=== PATIENT | female | born 1975 | race Caucasian/White ===

== ENCOUNTER 2023-09-02 14:59 | Outpatient (AMB) | payer BC, SELFPAY ==
--- NOTE | 2023-09-02 15:05 | MHC.OFFVIS ---
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 The patient is a 48 year woman, Active smoker, presented pulmonary nodules. did her smoking history she decided to participating in lung cancer screening program at [facility]. She did undergo a CT scan of the chest which I personally reviewed with her. The patient has numerous pulmonary nodules there appeared to be for the most part noncalcified solid nodules subcentimeter in size largest 1 measuring about 4 mm in size. In addition to that she does have ground-glass nodular densities. Best appreciated in the right lower lobe. the patient did also have evidence of chronic bronchitis and some mosaic pattern suggesting bronchiolitis from the smoking. Minimal emphysema appreciated. The patient understands that a lot of the findings on her CT scan have to do with smoking. She has been able to quit in the past. She did respond well to the nicotine patch. At this point she will reflect on in figure hot or she can best quit. on further questioning the patient does have a cough. [id number] severity. Productive typically in the morning. Typical of a smoker's cough. Denies any hemoptysis. She denies any chest pain. She is not using any inhalers at this point she does feel like she needs 1. based on the CT scan findings the patient will follow-up with a CT scan in June of 2024 through the lung cancer screening program. After she undergoes a CT scan she will return so we can review the CT scans together in compare. I am hopeful that she can quit smoking prior to her next CT scan in order for us to see improvements specially since some of the nodules appear to be inflammatory in nature. [facility] Medical History (Updated 09/04/23 @ 21:49 by Luis Harris MD) Tobacco dependence Pulmonary nodules Social History (Updated 09/02/23 @ 15:09 by MARIE Rodriguez) Patient Tobacco Use Status: Current everyday Tobacco user Tobacco use type: Cigarette Review of Systems Const Denies fever(s) Eyes Reports no additional complaints ENT Reports no additional complaints Card Denies chest pain Resp Reports chest congestion, Reports cough and Denies wheezing GI Reports no additional complaints Musc Reports no additional complaints Skin/Breast Denies rash Dave/Lymph Denies lymphadenopathy Aller/Immun Denies wheezing Physical Exam Vital Signs: Last Vital Signs Pulse 70 09/02/23 15:06 BP 110/60 09/02/23 15:06 Pulse Ox 98 09/02/23 15:06 Oxygen Delivery Method Room Air 09/02/23 15:06 BMI result Body Mass Index 24.1 Const General: comfortable HEENT Head: Yes normocephalic Neck Neck: Yes supple Chest Chest palpation & inspection: normal inspection of the chest Resp Effort & Inspection: normal respiratory effort and prolonged expiratory phase Auscultation: diminished lung sounds Cardio Heart sounds: S1 normal heart sound present and S2 normal heart sound present GI Palpation (GI): Soft to palpation Skin General skin exam: no rashes or lesions noted Extrem General: Yes no clubbing, cyanosis or edema Assessment & Plan Assessment & Plan (1) Pulmonary nodules: Code(s): R91.8 - Other nonspecific abnormal finding of lung field Category: Medical (2) Tobacco dependence: Code(s): F17.200 - Nicotine dependence, unspecified, uncomplicated Category: Medical Plan LDCT 06/2024 tobacco cessation consider JACINDA as needed F/U 1 year Coding Level of Care Code New Pt Level 4 (23150) Diagnoses Pulmonary nodules R91.8 Tobacco dependence F17.200 Time Spent (min) 35
[2023-09-02 15:06] VITALS: BP 110/60; PULSE 70; O2SAT 98; BMI 24.1
== END 2023-09-02 15:36 | disposition home or self-care (01) ==
PROVIDERS: PCP Internal Medicine; Referring Provider Internal Medicine; Visit Provider Hospitalist
DX: R91.8 Other nonspecific abnormal finding of lung field (principal); F17.200 Nicotine dependence, unspecified, uncomplicated
CPT/HCPCS: 99204

== ENCOUNTER → 2023-09-02 14:59 | Outpatient (BNVA) | payer BC, SELFPAY | PROVIDERS: PCP Internal Medicine; Referring Provider Internal Medicine; Visit Provider Hospitalist ==

== ENCOUNTER 2024-08-07 09:35 | Outpatient (AMB) | payer BC, SELFPAY ==
[2024-08-07 09:37] VITALS: BP 118/76; PULSE 58; O2SAT 100; BMI 25.6
--- NOTE | 2024-08-07 09:37 | A.OFFVIS_ITS ---
Vital Signs 08/07/24 09:37 Height 5 ft 2 in Weight 139 lb 15.896 oz BMI 25.6 BP 118/76 Blood Pressure Location Rt brachial Position Sitting Pulse 58 Pulse Source Pulse Oximeter Pulse Oximetry (%) 100 Oxygen Delivery Method Room Air Intake Visit Reasons: Pulmonary Nodules/PFT Follow Up Allergies No Known Allergies Allergy (Verified 08/07/24 09:40) HPI Comments Details: The patient is a 49 year woman, Active smoker, presented pulmonary nodules. did her smoking history she decided to participating in lung cancer screening program at [facility]. She did undergo a CT scan of the chest which I personally reviewed with her. The patient has numerous pulmonary nodules there appeared to be for the most part noncalcified solid nodules subcentimeter in size largest 1 measuring about 4 mm in size. In addition to that she does have ground-glass nodular densities. Best appreciated in the right lower lobe. the patient did also have evidence of chronic bronchitis and some mosaic pattern suggesting bronchiolitis from the smoking. Minimal emphysema appreciated. The patient understands that a lot of the findings on her CT scan have to do with smoking. She has been able to quit in the past. She did respond well to the nicotine patch. At this point she will reflect on in figure hot or she can best quit. on further questioning the patient does have a cough. [id number]-ik-[id number] severity. Productive typically in the morning. Typical of a smoker's cough. Denies any hemoptysis. She denies any chest pain. She is not using any inhalers at this point she does feel like she needs 1. based on the CT scan findings the patient will follow-up with a CT scan in June of 2024 through the lung cancer screening program. After she undergoes a CT scan she will return so we can review the CT scans together in compare. I am hopeful that she can quit smoking prior to her next CT scan in order for us to see improvements specially since some of the nodules appear to be inflammatory in nature. 08/07/2024 the patient is here for a pulmonary follow-up visit. Overall the patient has been doing okay. Has been working very hard and has been very visit. Unfortunately she has not been able to quit smoking because of her stress level has been very high and she has not been able to do so. However now things are getting a little better and she is hoping to be able to quit. The patient did have another CAT scan to the lung cancer screening program that we did review. Her pulmonary nodules appear to be stable. She does have a little bit of emphysema and also has some cholesterol buildup. Explained to her that this is all symptoms and findings due to her smoking. The UR was going now with the 0 RI RI 0 the in a tight unfortunately [facility] Medical History (Updated 09/04/23 @ 21:49 by Luis Harris MD) Tobacco dependence Pulmonary nodules Social History (Updated 08/07/24 @ 09:39 by Priya Carbajal CMA) Patient Tobacco Use Status: Current everyday Tobacco user Tobacco use type: Cigarette Cigarette Packs Per Day: 0.5 Cigarettes Per Day: 10 Review of Systems Const Denies fever(s) Eyes Reports no additional complaints ENT Reports no additional complaints Card Denies chest pain Resp Reports chest congestion, Reports cough and Denies wheezing GI Reports no additional complaints Musc Reports no additional complaints Skin/Breast Denies rash Dave/Lymph Denies lymphadenopathy Aller/Immun Denies wheezing Physical Exam Vital Signs: Last Vital Signs Pulse 58 08/07/24 09:37 BP 118/76 08/07/24 09:37 Pulse Ox 100 08/07/24 09:37 Oxygen Delivery Method Room Air 08/07/24 09:37 BMI result Body Mass Index 25.6 Const General: comfortable HEENT Head: Yes normocephalic Neck Neck: Yes supple Chest Chest palpation & inspection: normal inspection of the chest Resp Effort & Inspection: normal respiratory effort and prolonged expiratory phase Auscultation: diminished lung sounds Cardio Heart sounds: S1 normal heart sound present and S2 normal heart sound present GI Palpation (GI): Soft to palpation Skin General skin exam: no rashes or lesions noted Extrem General: Yes no clubbing, cyanosis or edema Assessment & Plan Assessment & Plan (1) Pulmonary nodules: Code(s): R91.8 - Other nonspecific abnormal finding of lung field Category: Medical (2) Tobacco dependence: Code(s): F17.200 - Nicotine dependence, unspecified, uncomplicated Category: Medical Plan LDCT 06/2025 Rads 2 tobacco cessation: will try nicotine patch and break through gum consider JACINDA as needed F/U 1 year Medications: New nicotine 1 patch transdermal DAILY 28 ea 6RF 28 days nicotine (polacrilex) (Nicorette) 2 mg buccal Q6H PRN 50 ea 6RF nicotine cravings Coding Level of Care Code Est Pt Level 4 (99589) Diagnoses Pulmonary nodules R91.8 Tobacco dependence F17.200 Time Spent (min) 17
--- OUTSIDE RECORDS SUMMARY | 2024-08-07 10:46 | XMS_ITS | Clinical Summary ---
Author Organization [facility] [address] [facility] Address [address] [place] [address] Phone Care Team Providers Care Insole Bottom Filler Name Role Phone Mikal Griffith MD Primary Care Provider [phone] Allergies Active Allergy Reactions Criticality Noted Date Comments Cashew Nut 08/01/2024 Hazelnut 08/01/2024 Pistachio Nut 08/01/2024 Medications topiramate (TOPAMAX) 200 mg tablet Take 1 tablet (200 mg total) by mouth 2 (two) times a day. Active estradiol-noreth indrone (Activella) 1-0.5 mg per tablet Take 1 tablet by mouth 1 (one) time each day. 90 each 1 08/01/2024 Active Active Problems Problem Noted Date Diagnosed Date Papanicolaou smear of cervix with atypical squamous cells cannot exclude high grade squamous intraepithelial lesion (ASC-H) 11/19/2010 Overview (08/01/2024): History: PAP 10/05/2010: ASCUS with High Risk HPV DNA detected. Colposcopy 11/19/2010: No disease seen; biopsy not taken. PAP 07/05/2011: Mild Dysplasia PAP 01/14/2012: ASCUS with High Risk HPV DNA detected. PAP 07/14/2012: ASCUS PAP 06/21/2013: ASCUS with High Risk HPV DNA detected. PAP 01/17/2014: Cytology negative; HVP Types 18/45 Positive PAP 07/28/2015: Cytology negative; High Risk HPV DNA negative Encounters Date Type Department Care Team Description 08/01/2024 2:45 PM EDT Office Visit Obstetrics and Gynecology [address] [phone] Shannen Vazquez CNM Women's annual routine gynecological examination (Primary Dx); Brain fog; Mood swings; Encounter for screening mammogram for malignant neoplasm of breast from Last 3 Months Surgical History Surgery Date Site/Laterality Comments LASER ABLATION OF THE CERVIX 1996 PROCEDURE: NC CAUTERY CERVIX LASER ABLATION; COMMENT: she is not sure why she had it done OTHER SURGICAL HISTORY 06/2008 PROCEDURE: NC DILATION & CURETTAGE DX&/THER NONOBSTETRIC; COMMENT: In management of Missed . Medical History Medical History Date Comments Palpitations 04/18/2006 DX:Palpitations Unspecified constipation 04/18/2006 DX:Unsp ecified constipation Smoker DX:Smoker; COMME NT: 1ppd Anemia associated with other specified nutritional deficiency DX:Anemia associated with other specified nutritional deficiency Anxiety state, unspecified DX:An xiety state, unspecified Papanicolaou smear of cervix with atypical squamous cells cannot exclude high grade squamous intraepithelial lesion (ASC-H) 11/19/2010 DX:Papanicolaou smear o f cervix with atypical squamous cells cannot exclude high grade squamous intraepithelial lesion (ASC-H) Family History Medical History Relation Name Comments Heart failure Father Hyperlipidemia Father Hypertension Father Diabetes Maternal Grandfather Heart failure Maternal Grandfather Arthritis Maternal Grandmother Heart failure Maternal Grandmother Diabetes Mother Heart failure Mother Heart failure Paternal Grandfather Heart failure Paternal Grandmother Breast cancer Neg Hx Colon cancer Neg Hx Kidney cancer Neg Hx Ovarian cancer Neg Hx Pancreatic cancer Neg Hx Prostate cancer Neg Hx Uterine cancer Neg Hx Relation Name Status Comments Father Alive Maternal Grandfather Maternal Grandmother Mother (Age 71) Paternal Grandfather Paternal Grandmother Alive Sister Alive x2 Son Alive Social History Tobacco Use Types Packs/Day Years Used Date Smoking Tobacco: Some Days Cigarettes Last attempted to quit: 08/22/2012 Smokeless Tobacco: Never Alcohol Use Standard Drinks/Week Comments Yes 0 (1 standard drink = 0.6 oz pur e alcohol) occasionl Comments No Sex and Gender Information Value Date Recorded Sex Assigned at Not on file Legal Sex Female 2:01 PM EST Gender Identity Not on file Sexual Orientation Not on file Obstetrics History Para Term AB IAB SAB Ectopic Multiple Livin g Live Births 3 1 1 2 1 1 1 1 Date Outcome GA Total Labor Labor/2nd/3rd Weight Sex Type Anes PTL Bernice A1 A5 Name Clin 2005 IAB Surgic al Garry Decea sed 2008 SAB SAB Decea sed 2014 Term 41w 0d 3799 g (134 oz) M CS-Uns pec Epidur al Livin g Max Dr. Ktahy serrano Delivery Location:[facility] Comments:Non-reassurin g tracing. Last Filed Vital Signs Vital Sign Reading Time Taken Comments Blood Pressure 112/88 08/01/2024 2:49 PM EDT Pulse 79 08/01/2024 2:49 PM EDT Temperature - - Respiratory Rate 16 08/01/2024 2:49 PM EDT Oxygen Saturation - - Inhaled Oxygen Concentration - - Weight 62.4 kg (137 lb 9.6 oz) 08/01/2024 2:49 P M EDT Height 157.5 cm (5' 2 ) 08/01/2024 2:49 PM EDT Body Mass Index 25.17 08/01/2024 2:49 PM EDT Plan of Treatment Upcoming Encounters Date Type Department Care Team (Late st Contact Info) Description 10/31/2024 1:15 PM EDT Office Visit Obstetrics and Gynecology [address] [phone] Shannen Vazquez, [facility] [address] [place] [address] 02/05/2025 4:30 PM EDT Appointment Radiology Department - [address] [phone] Health Maintenance Due Date Last Done Comments Breast Cancer Screening 1973 Hepatitis B Vaccines (1 of 3 - 19+ 3-dose series) 1992 Pneumococcal Vaccine: 50+ Ye ars (1 of 2 - PCV) 1992 Pneumococcal Vaccine: Pediat rics (0 to 5 Years) and At-Risk Patients (6 to 64 Years) (1 of 2 - PCV) 1992 Cholesterol Screening (Lipid Panel) 03/31/2022 Colorectal Cancer Screening: Colonoscopy 03/31/2022 Depression Screening 03/31/2022 HIV Screening 03/31/2022 Hepatitis C Screening 03/31/2022 Social Influencers of Health Screening 03/31/2022 Zoster Vaccines (1 of 2) 2023 COVID-19 Vaccine (1 - 2023-2 5 season) 2024 DTaP,Tdap,and Td Vaccines (2 - Td or Tdap) 07/15/2024 07/15/2014 Influenza Vaccine (Season Ended) 2024 Cervical Cancer Screening: HPV 08/01/2029 08/01/2024 HIB Vaccines Aged Out No longer eligi ble based on patient's age to complete this topic HPV Vaccines Aged Out No longer eligi ble based on patient's age to complete this topic Hepatitis A Vaccines Aged Out No long er eligible based on patient's age to complete this topic IPV Vaccines Aged Out No longer eligi ble based on patient's age to complete this topic MMR Vaccines Aged Out No longer eligi ble based on patient's age to complete this topic Meningococcal ACWY Vaccine Aged Out N o longer eligible based on patient's age to complete this topic Meningococcal B Vaccine Aged Out No l onger eligible based on patient's age to complete this topic RSV Immunization Patients Un meri 20 months Aged Out No longer eligible b ased on patient's age to complete this topic Varicella Vaccines Aged Out No longer eligible based on patient's age to complete this topic Procedures Procedure Name Priority Date/Time Associated Diagnosis Comments PAP SMEAR Routine 08/01/2024 3:31 PM EDT Women's annual routine gynecological examination HPV WITH REFLEX GENOTYPE Routine 08/01/2024 3:31 PM EDT Women's annual routine gynecological examination from Last 3 Months Results * HPV with reflex genotype (08/01/2024 3:31 PM EDT) HPV Negative Negative LAB MICROBIOLOGY METHOD 08/02/2024 1:02 PM EDT [facility] Brushing/Spatula Cervix uteri structure / Unknown 08/01/2024 3:31 PM EDT 08/02/2024 5:50 AM EDT Shannen Myrna Vazquez [facility] MOLECULAR DIAGNOSTICS O RDERABLES Final Result [facility] [address] [place] [address], * Pap smear (08/01/2024 3:31 PM EDT) Interpretation Negative for intraepithelial lesion or malignancy 08/03/2024 10:48 AM EDT [facility] General Categorization Negative 08/03/2024 10:48 AM EDT [facility] LMP 06/25/2024 08/03/2024 10:48 AM EDT [facility] Specimen Adequacy Satisfactory for evaluation, endocervical/cabral sformation zone component present 08/03/2024 10:48 AM EDT [facility] Pap Methodology Liquid Based Pap Test 08/03/2024 10:48 AM EDT [facility] Disclaimer The Pap test is a screening test which carries an inherent false negative rate. These test results should be correlated with the patient's clinical findings and history. This Pap test was processed using an automated screening system. Technical cytopathology services provided by [facility], at [address] [place] [id number] (CLIA # [id number]/Herbert Stafford MD, Produce Runner.) 08/03/2024 10:48 AM EDT [facility] Console Pap Interpretation Reported 08/03/2024 10:48 AM [facility] Brushing/Spatula Cervix uteri structure / Unknown 08/01/2024 3:31 PM EDT 08/01/2024 3:31 PM EDT us Shannen Vazquez CNJames LAB CYTOLOGY ORDERABLES Fin al Result [facility] [place] [facility] [address] [place] [address], [place] [phone] from Last 3 Months Insurance [id number] Care Teams Insole Bottom Filler Relationship Specialty Start Date End Date Mikal Griffith MD PCP - General 08/02/16
== END 2024-08-07 10:15 | disposition home or self-care (01) ==
LOC: HO.HPS 09:35
PROVIDERS: PCP Internal Medicine; Visit Provider Hospitalist
DX: R91.8 Other nonspecific abnormal finding of lung field (principal); F17.200 Nicotine dependence, unspecified, uncomplicated
CPT/HCPCS: 99214